=== PATIENT | male | born 1960 | race Caucasian/White ===

== ENCOUNTER 2018-07-22 16:18 | Emergency (ER) | payer OTHER ==
[2018-07-22 16:21] VITALS: BMI 22.0
--- NOTE | 2018-07-22 16:23 | PDOC ---
History of Present Illness - General Chief Complaint: Chest Pain Stated Complaint: CHEST PAIN X 1WK Time Seen by Provider: 07/22/18 16:23 - History of Present Illness Initial Comments: 07/22/18 16:23 Mr. Sanchez is a 58 yo male w/ pmh of BPH who presents for evaluation of 10 day history of chest pain. Patient reports his good friend around 2 weeks ago and thereafter he started to develop intermittent symptoms. He describes it as a non-radiating tightness that "moves around" and is unrelated to any activity or position. Longest amount of time these have lasted was 45 minutes. He is experiencing these episodes daily. Patient further reports he walked over 11 miles this weekend however did not experience any pain during his walk. The patient denies shortness of breath, headache and dizziness. Denies fever, chills, nausea, vomit, diarrhea and constipation. Denies dysuria, frequency, urgency and hematuria. Past History - Past Medical History Allergies/Adverse Reactions: Allergies Allergy/AdvReac Type Severity Reaction Status Date / Time No Known Allergies Allergy Verified 07/22/18 16:19 Home Medications: Ambulatory Orders Azelastine HCl 137 mcg NS DAILY 07/22/18 Finasteride [Proscar -] 5 mg PO DAILY 07/22/18 Tamsulosin HCl [Flomax] 0.4 mg PO DAILY 07/22/18 COPD: No Other medical history: BPH - Suicide/Smoking/Psychosocial Hx Smoking History: Never smoked Hx Alcohol Use: Yes (4-5 X WEEKS) Drug/Substance Use Hx: Yes (MARIJUANA) Review of Systems - Review of Systems Comments:: 07/22/18 16:23 GENERAL/CONSTITUTIONAL: No fever or chills. No weakness. HEAD, EYES, EARS, NOSE AND THROAT: No change in vision. No ear pain or discharge. No sore throat. CARDIOVASCULAR: +Chest pain as described. No shortness of breath RESPIRATORY: No cough, wheezing, or hemoptysis. GASTROINTESTINAL: No nausea, vomiting, diarrhea or constipation. GENITOURINARY: No dysuria, frequency, or change in urination. MUSCULOSKELETAL: No joint or muscle swelling or pain. No neck or back pain. SKIN: No rash NEUROLOGIC: No headache, vertigo, loss of consciousness, or change in strength/ sensation. ENDOCRINE: No increased thirst. No abnormal weight change HEMATOLOGIC/LYMPHATIC: No anemia, easy bleeding, or history of blood clots. ALLERGIC/IMMUNOLOGIC: No hives or skin allergy. *Physical Exam - Vital Signs Last Vital Signs Temp Pulse Resp BP Pulse Ox 0/0 L 07/22/18 16:19 - Physical Exam Comments: 07/22/18 16:23 GENERAL: Awake, alert, and fully oriented, in no acute distress HEAD: No signs of trauma, normocephalic, atraumatic EYES: PERRLA, EOMI, sclera anicteric, conjunctiva clear ENT: Auricles normal inspection, hearing grossly normal, nares patent, oropharynx clear without exudates. Moist mucosa NECK: Normal ROM, supple, no lymphadenopathy, JVD, or masses LUNGS: No distress, speaks full sentences, clear to auscultation bilaterally HEART: Regular rate and rhythm, normal S1 and S2, no murmurs, rubs or gallops, peripheral pulses normal and equal bilaterally. ABDOMEN: Soft, nontender, normoactive bowel sounds. No guarding, no rebound. No masses EXTREMITIES: Normal inspection, Normal range of motion, no edema. No clubbing or cyanosis. NEUROLOGICAL: Cranial nerves II through XII grossly intact. Normal speech, normal gait, no focal sensorimotor deficits SKIN: Warm, Dry, normal turgor, no rashes or lesions noted. Heart Score/ECG Review - History History: Moderately suspicious - Electrocardiogram EKG: Non specific repolarization disturbance - Age Age: 45-65 - Risk Factors Based on the list above the patient has:: No risk factors known - Troponin Troponin: </= normal limit - Score Heart Score - Total: 3 ED Treatment Course - LABORATORY CBC & Chemistry Diagram: 07/22/18 16:49 07/22/18 16:49 Medical Decision Making - Medical Decision Making 07/22/18 16:43 Mr. Sanchez is a 58 yo male w/ pmh as described who presents for evaluation of chest pain symptoms concerning for ACS vs. anxiety symptoms vs. pulmonary process. Workup started accordingly with labs as below, CXR, and EKG. 07/22/18 17:40 CXR negative. EKG negative. Labs grossly wnl as below. Patient safe for discharge and follow-up outpatient with cardiology at previously scheduled appointment. Discharging to home. Laboratory Results - last 24 hr 03/25/19 03/25/19 03/25/19 16:49 16:49 16:49 WBC 7.5 RBC 4.68 Hgb 13.9 Hct 42.5 MCV 90.6 MCH 29.6 MCHC 32.7 RDW 11.8 L Plt Count 328 MPV 8.1 Absolute Neuts (auto) 5.1 Neutrophils % 67.8 Lymphocytes % 20.3 Monocytes % 6.6 Eosinophils % 1.8 Basophils % 3.5 H Sodium 134 L Potassium 3.9 Chloride 99 Carbon Dioxide 25 Anion Gap 10 BUN 14 Creatinine 0.6 Creat Clearance w eGFR 137.43 Random Glucose 105 Calcium 9.1 Total Bilirubin 0.7 AST 21 ALT 19 Alkaline Phosphatase 62 Creatine Kinase 111 Troponin I < 0.03 Total Protein 7.5 Albumin 4.4 *DC/Admit/Observation/Transfer Diagnosis at time of Disposition: Chest pain Qualifiers: Chest pain type: unspecified Qualified Code(s): R07.9 - Chest pain, unspecified - Discharge Dispostion Disposition: HOME Condition at time of disposition: Stable - Referrals - Patient Instructions Printed Discharge Instructions: DI for Atypical Chest Pain Additional Instructions: You were evaluated today in the ER for your chest pain. We performed labs, EKG, and chest Xray all with no concerning findings. Please follow-up with reed maker at previously scheduled appointment. Return to ER if any fever, chills, increase in pain, or other concerning symptoms. - Post Discharge Activity
--- NOTE | 2018-07-22 16:34 | PDOC ---
Attending Attestation - Resident Resident Name: Kingsley Moore - ED Attending Attestation I have performed the following: I have examined & evaluated the patient, The case was reviewed & discussed with the resident, I agree w/resident's findings & plan, Exceptions are as noted - HPI HPI: 58 yo M history BPH presents with 10 day history of chest pain. He has had intermittent pain since his friend 10 days ago. No exacerbating or ameliorating factors. Described as wrapping around his chest. Denies exertional pain. - Physicial Exam PE: GENERAL: Awake, alert, and fully oriented, in no acute distress HEAD: No signs of trauma EYES: PERRLA, EOMI, sclera anicteric, conjunctiva clear ENT: Auricles normal inspection, hearing grossly normal, nares patent, oropharynx clear without exudates. Moist mucosa NECK: Normal ROM, supple, no lymphadenopathy, JVD, or masses LUNGS: Breath sounds equal, clear to auscultation bilaterally. No wheezes, and no crackles HEART: Regular rate and rhythm, normal S1 and S2, no murmurs, rubs or gallops ABDOMEN: Soft, nontender, normoactive bowel sounds. No guarding, no rebound. No masses EXTREMITIES: Normal range of motion, no edema. No clubbing or cyanosis. No cords, erythema, or tenderness NEUROLOGICAL: Cranial nerves II through XII grossly intact. Normal speech, normal gait. Motor and sensation intact SKIN: Warm, Dry, normal turgor, no rashes or lesions noted. - Medical Decision Making Pt presents with atypical cp, nonexertional, lasting past 10 days. HEART score is 3. If labs, EKG, and CXR wnl, will DC home. Heart Score/ECG Review - History History: Moderately suspicious - Electrocardiogram EKG: Non specific repolarization disturbance - Age Age: 45-65 - Risk Factors Based on the list above the patient has:: No risk factors known - Troponin Troponin: </= normal limit - Score Heart Score - Total: 3
[2018-07-22 16:57] VITALS: TEMP 98.1
[2018-07-22 17:15] LABS: BASO % 3.5 % (0-2.0); EOS % 1.8 % (0-4.5); HEMATOCRIT 42.5 % (35.4-49); HEMOGLOBIN 13.9 GM/dl (11.7-16.9); LYMPH % 20.3 % (8-40); MCH 29.6 pg (25.7-33.7); MCHC 32.7 g/dl (32.0-35.9); MEAN CELL VOLUME 90.6 fl (80-96); MEAN PLT VOLUME 8.1 fl (7.5-11.1); MONO % 6.6 % (3.8-10.2); NEUT % 67.8 % (42.8-82.8); PLATELET COUNT 328 K/MM3 (134-434); RBC 4.68 M/mm3 (4.00-5.60); RDW 11.8 % (11.9-15.9); WHITE BLOOD COUNT 7.5 K/mm3 (4.0-10.8)
[2018-07-22 17:31] LABS: ALBUMIN 4.4 g/dl (3.4-5.0); ALK PHOS 62 U/L (45-117); ANION GAP 10 MMOL/L (8-16); BILIRUBIN,TOTAL 0.7 mg/dl (0.2-1); BLOOD UREA NITROGEN 14 mg/dl (7-18); CALCIUM 9.1 mg/dl (8.5-10); CHLORIDE 99 mmol/L (98-107); CO2 25 mmol/L (21-32); CREATININE 0.6 mg/dl (0.55-1.3); GLUCOSE,RANDOM 105 mg/dl (74-106); POTASSIUM 3.9 mmol/L (3.5-5.1); SGOT/AST 21 U/L (15-37); SGPT/ALT 19 U/L (13-61); SODIUM 134 mmol/L (136-145); TOT PROT 7.5 g/dl (6.4-8.2)
[2018-07-22 17:44] VITALS: BP 153/90; PULSE 70
--- NOTE | 2018-07-23 09:27 | EKG ---
Test Reason : Blood Pressure : / mmHG Vent. Rate : 084 BPM Atrial Rate : 084 BPM P-R Int : 124 ms QRS Dur : 106 ms QT Int : 368 ms P-R-T Axes : 047 -08 035 degrees QTc Int : 434 ms NORMAL SINUS RHYTHM BASELINE ARTIFACT NO PREVIOUS ECGS AVAILABLE Confirmed by SHAVON CASTRO MD ([id number]) on 07/23/2018 9:27:42 AM Referred By: Confirmed By:SHAVON CASTRO MD
== END 2018-07-22 17:47 | disposition home or self-care (01) ==
LOC: FER 16:18
DX: R07.9 Chest pain, unspecified (principal)
CPT/HCPCS: 36415; 71046-TC-FY; 80053; 82550; 84484; 85025; 93005; 99283-25